=== PATIENT | male | born 1945 | race Caucasian/White ===

== ENCOUNTER 2022-04-19 07:18 | Observation (INO) ==
--- NOTE | 2022-03-12 14:22 | PAT Medication Instructions ---
Medication Instructions Date of Service March 12, 2022 Home Medications Medication Instructions Recorded meloxicam 15 mg tablet (Mobic) 15 mg PO DAILY #30 tabs 12/03/21 meloxicam 15 mg tablet 15 mg PO DAILY #30 tabs 03/07/22 atorvastatin 40 mg tablet 40 mg PO QPM calcium carbonate 500 mg calcium (1,250 mg) chewable tablet (Calcium 500) 500 mg PO BID cyclobenzaprine 10 mg tablet 10 mg PO HS PRN Muscle Spasm furosemide 20 mg tablet 20 mg PO UD meloxicam 15 mg tablet (Mobic) 15 mg PO DAILY metoprolol tartrate 100 mg tablet 100 mg PO BID omeprazole 40 mg capsule,delayed release 40 mg PO QAM tamsulosin 0.4 mg capsule 0.8 mg PO QPM meloxicam 15 mg tablet 15 mg PO DAILY coffee extract 100 mg-phosphatidyl serine 100 mg capsule (Neuriva Original) 100 cap PO QAM meclizine 25 mg tablet 25 mg PO UD PRN Dizziness ASK your surgeon for instructions meloxicam 15 mg tablet (Mobic) 15 mg PO DAILY STOP taking 2 weeks before surgery (or as soon as possible if surgery is within 2 weeks) coffee extract 100 mg-phosphatidyl serine 100 mg capsule (Neuriva Original) 100 cap PO QAM DO NOT take the morning of surgery calcium carbonate 500 mg calcium (1,250 mg) chewable tablet (Calcium 500) 500 mg PO BID furosemide 20 mg tablet 20 mg PO UD Take morning of surgery With a small sip of water, OTHERWISE NOTHING TO EAT OR DRINK AFTER MIDNIGHT: metoprolol tartrate 100 mg tablet 100 mg PO BID omeprazole 40 mg capsule,delayed release 40 mg PO QAM meclizine 25 mg tablet 25 mg PO UD PRN Dizziness (if needed) Take evening before surgery atorvastatin 40 mg tablet 40 mg PO QPM calcium carbonate 500 mg calcium (1,250 mg) chewable tablet (Calcium 500) 500 mg PO BID cyclobenzaprine 10 mg tablet 10 mg PO HS PRN Muscle Spasm (if needed) metoprolol tartrate 100 mg tablet 100 mg PO BID tamsulosin 0.4 mg capsule 0.8 mg PO QPM meclizine 25 mg tablet 25 mg PO UD PRN Dizziness (if needed) Other Notes If you have any questions please call us at [phone] or [phone] or [phone] or [phone]
--- NOTE | 2022-03-20 11:58 | Anesthesiology Consultation ---
Date of Service March 20, 2022 Assessment & Plan (1) Encounter for pre-operative examination: - COVID screening: Per assessment on 03/20: No known COVID-19 positive contacts or current COVID-19 related symptoms. Travel screen negative. Patient vaccinated. At surgeon discretion if preop Covid testing being done. - Outpatient joint assessment: Pt currently scheduled for inpatient pathway. If surgeon requests review for outpatient joint pathway, patient is not recommended candidate for outpatient joint program from anesthesia standpoint. - Preop EKG: ST elevated, consider early repolarization, pericarditis or injury. Otherwise normal ECG. No cardiopulmonary limiting complaints or chest pain at PAT visit from same day. Case reviewed and preop EKG personally reviewed by Dr. Aggarwal- he feels patient okay to proceed with surgery as scheduled pending repeat EKG AM DOS (does not feel further cardiac testing and/or evaluation needed otherwise from his perspective). Chart Review Chart Review: Acceptable Risk for Surgery (pending preop EKG/evaluation AM DOS) and Patient seen in Pre Admission Testing Teaching & Discussion Pre-Anesthesia Teaching/Discussion Notes: Instructed NPO after midnight before surgery,except medications with 15 cc of water. Medication instructions provided according to the PAT guidelines. History Surgery Operation Date: 04/19/22 08:05 Proposed Procedures p Right Total Knee Arthroplasty - Terry Justice, Height/Weight Height: 5 ft 10 in Weight: 116 kg Allergies Allergy/AdvReac Type Severity Reaction Status Date / Time Iodinated Contrast Media Allergy Intermediate Hives Verified 03/12/22 10:00 Medications Home Medications Medication Instructions Recorded Confirmed Last Taken atorvastatin 40 mg tablet 40 mg PO QPM 12/03/21 03/12/22 Unknown calcium carbonate 500 mg calcium 500 mg PO BID 12/03/21 03/12/22 Unknown (1,250 mg) chewable tablet (Calcium 500) cyclobenzaprine 10 mg tablet 10 mg PO HS PRN Muscle Spasm 12/03/21 03/12/22 Unknown furosemide 20 mg tablet 20 mg PO UD 12/03/21 03/12/22 Unknown meloxicam 15 mg tablet (Mobic) 15 mg PO DAILY #30 tabs 12/03/21 03/12/22 Unknown metoprolol tartrate 100 mg tablet 100 mg PO BID 12/03/21 03/12/22 Unknown omeprazole 40 mg capsule,delayed 40 mg PO QAM 12/03/21 03/12/22 Unknown release tamsulosin 0.4 mg capsule 0.8 mg PO QPM 12/03/21 03/12/22 Unknown meloxicam 15 mg tablet 15 mg PO DAILY #30 tabs 03/07/22 03/12/22 Unknown coffee extract 100 mg-phosphatidyl 100 cap PO QAM 03/12/22 03/12/22 Unknown serine 100 mg capsule (Neuriva Original) meclizine 25 mg tablet 25 mg PO UD PRN Dizziness 03/12/22 03/12/22 Unknown Past Medical History Medical History (Updated 03/20/22 @ 15:43 by Shellie Bhatti) Chronic anemia Dementia Per [facility] neuro records "Early stages" GERD (gastroesophageal reflux disease) History of COVID-19 2019- dehydrated, hospitalization x 1 night, no current issues [place] (hard of hearing) Hyperlipidemia Hypertension GISELA (obstructive sleep apnea) No device Osteoarthritis Vertigo Exercise / Class Metabolic Activity III < 4 Walking/Shop/Light housework Past Family History Family History Other No family history of adverse response to anesthesia Past Surgical History Surgical History History of esophagogastroduodenoscopy (EGD) History of left knee replacement History of surgery on arm right Hx of cardiac catheterization ~40 yrs ago > no stents Hx of cholecystectomy Hx of colonoscopy Hx of gastric bypass Past Anesthesia History No Hx of Anesthesia Complications and No Family Hx of Anesthesia Complications History of PONV No Hx of PONV and Hx of Motion Sickness Social History Smoking Status: Former smoker tobacco type: cigarettes Do You Dip or Chew Tobacco: No (Quit years ago) Smoking End Date: Quit 45+ years ago Hx Alcohol Use: No Hx Substance Use: No substance use type: does not use Review of Systems Patient denies chest pain, shortness of breath, fever, chills, cough, wheezing, palpitations. Physical Exam Vital Signs VITALS BP 128/72 P 64 TEMP 98.4 SP02 97%RA RESP 18 PHYSICAL Full cervical extension range of motion. Full TMJ range of motion. TMD 3 finger breaths Mallampati Score 3 Dentition: several missing sides/molars, upper front chipped- recently filed/repaired Lungs: clear throughout to auscultation Cardiac: regular rate and rhythm, no murmurs noted Spine: normal Carotid arteries: negative bruit Extremities: no edema Lab Results Anesthesia Preop Results Results Anesthesia Widget: WBC 6.60 K/ul (4.8-10.8) 03/20/22 Hgb 12.9 g/dl (14.0-18.0) L 03/20/22 Hct 37.5 % (40.1-51.0) L 03/20/22 Plt 125 K/uL (130-400) L 03/20/22 Na 141 mmol/L (136-145) 03/20/22 K 3.8 mmol/L (3.5-5.1) 03/20/22 Cl 106 mmol/L (98-107) 03/20/22 CO2 29 mmol/L (21-32) 03/20/22 BUN 17 mg/dl (6-23) 03/20/22 Creat 0.77 mg/dl (0.6-1.4) 03/20/22 Glucose Level 137 mg/dl (70-99(Fasting)) H 03/20/22 PT 11.5 Seconds (9.0-12.0) 03/20/22 PTT 25.3 Seconds (21.0-31.0) 03/20/22 INR 1.1 (0.9-1.1) 03/20/22 HA1c 6.1 % (4.5-5.6) H 03/20/22 Blood Type A Positive 03/20/22 Antibody Screen NEGATIVE 03/20/22 Testing Electrocardiogram Date: 03/20/22 NSR at [address] elevated, consider early repolarization, pericarditis or injury. Otherwise normal ECG. Chest X-Ray Date: 03/20/22 FINDINGS: No lines and tubes are seen. Calcified aortic knob is seen. The lungs are clear. No evidence of pleural effusion or pneumothorax. IMPRESSION: No acute chest disease. COVID-19 Risk Screen Screening Information COVID-19 Screen Date: 03/20/22 Exposure 21 Days Family/Household +COVID Last 21 Days: No Exposure 10 Days Any COVID Exposure Last 10 Days: No Symptoms Last 10 Days Experienced COVID Sx Last 10 Days: No + COVID 0-90 Days COVID + in Last 0-90 Days: No
[~2022-04-19 07:18] MED LIST: ACETAMINOPHEN 500 MG TAB PO SCH; BUPIVACAINE 0.5 % 5 MG/1 ML PF 10ML VIAL ONE; FAMOTIDINE 20 MG TAB PO SCH; GABAPENTIN 300 MG CAP PO SCH; LR 500ML BOLUS, THEN 15ML/HR IV SCH; LR 60ML/HR IV SCH; ORTHO JOINT MIX INFIL SCH; ROPIVACAINE 0.5% 5 MG/ML 30 ML VIAL ONE; TRANEXAMIC ACID 1,000 MG **IV Intra-op IV SCH; TRANEXAMIC ACID 1,000 MG **IV Pre-op IV SCH; ceFAZolin 2000MG 2,000 MG/15 ML SYR IV SCH; dexAMETHasone 4 MG TAB PO SCH
--- NOTE | 2022-04-19 08:07 | History & Physical Bridge Note ---
Date of Service April 19, 2022 History & Physical Bridge Note I have examined the patient, reviewed the History & Physical and in the interval since the performance of the History & Physical I have noted the following changes of clinical significance: no changes noted
[2022-04-19] MEDS ORDERED: PROPOFOL IV EMULSION 10 MG/ML 20 ML VIAL IV ONE (08:15)
[2022-04-19] MEDS ORDERED: LIDOCAINE 2% MPF LOCAL 5 ML VIAL INFIL ONE (08:15)
[2022-04-19] MEDS ORDERED: MIDAZOLAM HCL 1 MG/ML 2ML VIAL ONE (08:15)
[2022-04-19] MEDS ORDERED: fentaNYL citrate 100 MCG/2 ML VIAL ONE (08:15)
[2022-04-19] MEDS ORDERED: ORTHO JOINT ANESTHETIC ONE (08:37)
[2022-04-19] MEDS ORDERED: ATROPINE SULFATE 0.1 MG/ML 10ML SYR IV PRN (08:49)
[2022-04-19] MEDS ORDERED: fentaNYL citrate 100 MCG/2 ML VIAL IV PRN (08:49)
[2022-04-19] MEDS ORDERED: ePHEDrine sulfate 50 MG/ML AMP IV PRN (08:49)
[2022-04-19] MEDS ORDERED: ONDANSETRON INJ 2 MG/ML 2 ML VIAL IV PRN ×2 (08:49→13:16)
--- NOTE | 2022-04-19 10:38 | Operative Report ---
PG Post Operative Report Pre & Post Diagnosis Operation Date: 04/19/22 09:15 Pre-Op Diagnosis: Degenerative joint disease right knee Post-Op Diagnosis: Degenerative joint disease right knee I identified the patient and participated in the time-out.: Yes Procedure Operation Date: 04/19/22 09:15 Actual Procedures p Right Total Knee Arthroplasty(Right) - Terry Justice DO Surgeon Terry Justice DO [employer] Member Terry Kaminski PA-C Estimated Blood Loss 50 Findings Consistent with Post-Op Diagnosis Specimens Right femoral and tibial bone Description of Procedure Implants used: I used a Sam Persona total knee arthroplasty system with a size 11 PS femur, F tibia, 34 oval patella, and a size 12 CPS polyethylene bearing. All components were cemented in place with Biomet cement. [facility] for the above procedure. He was seen in the preoperative holding area and the operative extremity was identified and signed. He was given a preoperative antibiotic, TXA, a spinal anesthetic and an adductor nerve block. He was taken back to the operating room and laid on the table in supine position. He was given basic sedation. The operative knee was then prepped and draped in sterile fashion. A timeout was done, and the patient and the operative extremity was properly identified. A midline incision was made directly over the patella. Dissection was taken down to the extensor mechanism. A midvastus arthrotomy was used. The medial retinaculum was released and the fat pad was mostly excised. The knee was flexed and the ACL, PCL, and meniscus were removed. A drill was sent down the center of the femoral canal followed by an intramedullary ryan. Off that ryan a distal femoral cutting block was placed. 9 mm was resected off the distal femur at 5 of valgus. A posterior referencing AP sizing guide was then placed on the distal femur. The femur measured to be a size 11. 2 drill holes were placed in 3 of external rotation. A 4-in-1 cutting block was then impacted into place. Anterior, posterior, and chamfer cuts were then made. The proximal tibia was then exposed. An external tibial alignment guide was placed. A tibial cut guide was then anchored in place and the proximal tibia was then resected. The posterior aspect of the knee was then opened up and any additional meniscus fragments and osteophytes were removed. The tibia measured to be a size F. The tibial plate was then placed in the appropriate rotation and the tibia was drilled and punched. Trial components were then placed. I used a size 12 CPS polyethylene insert. The knee was brought through a full range of motion and felt to be stable. The peg holes for the femoral component were then drilled. The patella was then everted and 9 mm was resected off the posterior aspect of the patella. The patella measured to be a size 34 oval. 3 peg holes were then drilled. A trial patella was placed. The knee was once again brought through a full range of motion and felt to be stable. Trial components were then removed. The surrounding soft tissues were injected with 100 cc of an orthopedic pain control cocktail. All components were then cemented into place with Biomet cement. The final polyethylene insert was then snapped into place. Once cement was dry the tourniquet was deflated. Hemostasis was obtained. A dilute betadyne lavage was then done for 3 minutes. The joint was then irrigated with normal saline solution. The midvastus arthrotomy was then closed with #1 Vicryl suture. The skin was closed with 2-0 Vicryl, 3-0V lock suture, and leelee. A soft compressive dressing was placed. He was then transferred to a hospital bed and taken to the postanesthesia care unit in stable condition. He tolerated the procedure well. Terry Kaminski PA-C, was present for the entire procedure. He was critical for patient positioning, prepping, draping, retraction exposure, wound closure and application of sterile dressing. I attest to the content of the Intraoperative Record and any orders documented therein. Any exceptions are noted below.
--- NOTE | 2022-04-19 11:34 | XRay Report ---
RIGHT KNEE 2 VIEWS History: Right total knee arthroplasty. Degenerative arthritis. Postop. FINDINGS: The patient is status post a right total knee arthroplasty. The hardware is intact. No frac ture or dislocation. Skin leelee are in place. IMPRESSION: Right total knee arthroplasty. No evidence for hardware complication. ACT 112: Negative or not required by law. Electronically signed by: Panda Spaulding M.D. 04/19/2022 11:32 AM
--- NOTE | 2022-04-19 13:08 | Anesthesiology Progress Note ---
Date of Service April 19, 2022 Anesthesia Post Procedure Vital Signs Vital Signs: Temp Pulse Resp BP Pulse Ox O2 Del Method O2 Flow Rate 04/19/22 12:40 63 14 101/62 99 Nasal Cannula 2 04/19/22 12:25 68 15 113/64 96 Nasal Cannula 2 04/19/22 12:10 65 13 113/66 94 Nasal Cannula 2 04/19/22 11:55 60 14 119/59 L 98 Nasal Cannula 2 04/19/22 11:40 97.2 F L 61 12 118/59 L 97 Room Air 04/19/22 11:30 58 L 13 94/51 L 94 Room Air 04/19/22 11:20 61 15 100/41 L 98 Room Air 04/19/22 11:10 59 L 13 108/62 100 Oxymask 5 04/19/22 11:02 97.0 F L 64 12 96/47 L 99 Oxymask 5 04/19/22 08:10 98.1 F 63 20 141/95 H 96 Room Air Transfer of Care Handoff Completed per policy Notes Mental Status: alert / awake / arousable and participated in evaluation Patient Amnestic to Procedure: Yes Nausea / Vomiting: adequately controlled Pain: adequately controlled Airway Patency, RR, SpO2: stable & adequate BP & HR: stable & adequate Hydration State: stable & adequate Neuraxial Anesthesia: was administered and sensory block is resolving Anesthetic Complications: no major complications apparent and Pt Satisfied with anesthetic care
[2022-04-19] MEDS ORDERED: MECLIZINE HCL 25 MG TAB PO PRN (13:16)
[2022-04-19] MEDS ORDERED: MAGNESIUM HYDROXIDE SUSP 30 ML UDC PO PRN (13:16)
[2022-04-19] MEDS ORDERED: METOCLOPRAMIDE HCL INJ 5 MG/ML 2 ML VIAL IV PRN (13:16)
[2022-04-19] MEDS ORDERED: bisacodyL 10 MG SUPP PR PRN (13:16)
[2022-04-19] MEDS ORDERED: NALOXONE HCL 0.4 MG/1 ML VIAL/CARP IV PRN (13:16)
[2022-04-19] MEDS ORDERED: HYDROmorphone INJ 0.5 MG/0.5 ML SYR IV PRN (13:16)
[2022-04-19] MEDS ORDERED: CYCLOBENZAPRINE HCL 10 MG TAB PO PRN (13:16)
[2022-04-19] MEDS ORDERED: oxyCODONE HCL IR 5 MG TAB (IMMEDIATE RELEASE) PO PRN (13:16)
[2022-04-19] MEDS: SODIUM CHLORIDE 0.9% 1000ML 1,000 ML IV SCH ×2 (14:27→23:42)
[2022-04-19] MEDS: KETOROLAC TROMETHAMINE 15 MG/ML VIAL IV SCH ×2 (14:28→20:27)
[2022-04-19] MEDS: ACETAMINOPHEN 500 MG TAB PO SCH ×2 (14:28→20:27)
[2022-04-19] MEDS: ceFAZolin 2000MG 2,000 MG/15 ML SYR IV SCH (17:48)
[2022-04-19] MEDS: ASPIRIN 81 MG ECTAB PO SCH (20:25)
[2022-04-19] MEDS: DOCUSATE SODIUM 100 MG CAP PO SCH (20:28)
[2022-04-19] MEDS: METOPROLOL TARTRATE 100 MG TAB PO SCH (20:29)
[2022-04-19] MEDS ORDERED: TAMSULOSIN HCL 0.4 MG CAP PO SCH (21:00)
[2022-04-19] MEDS ORDERED: ATORVASTATIN 40 MG TAB PO SCH (21:00)
[2022-04-19] MEDS ORDERED: SENNA 8.6 MG TAB PO SCH (21:00)
[2022-04-20] MEDS: KETOROLAC TROMETHAMINE 15 MG/ML VIAL IV SCH ×2 (01:48→08:31)
[2022-04-20] MEDS: ceFAZolin 2000MG 2,000 MG/15 ML SYR IV SCH (01:48)
[2022-04-20] MEDS: ACETAMINOPHEN 500 MG TAB PO SCH (05:09)
--- NOTE | 2022-04-20 07:20 | Orthopedic Progress Note ---
Date of Service April 20, 2022 Assessment & Plan (1) Status post right knee replacement: Overall he is doing very well. He is not having much pain in the right knee. He will be seen by physical therapy today for ambulation and range of motion exercises. He is on aspirin for DVT prophylaxis. He can be discharged home later today. He will follow-up with orthopedics in 2 weeks. Rajesh Mireles was seen and examined at bedside this morning. Overall is doing fairly well. He is not having much pain in the right knee. He has been up and ambulating to the bathroom. He has no complaints.. Review of Systems All systems reviewed & are unremarkable except as noted in HPI & below. Physical Exam On physical examination of the right knee, the dressing is clean and dry. His leg is out full extension. He has active dorsiflexion plantarflexion of his right ankle.. Results & Data Results & Data Laboratory Results . Diagnostic Findings Postoperative x-rays of the right knee show the prosthesis to be in anatomic alignment without any evidence of fracture, desiccation, or loosening.. PG Care Time/CCT Total # of Minutes Spent Total Time Spent with Patient: Total time spent is greater than 50% in coordination of care (as documented) at patient's floor/unit and/or counseling patient: Coding Level of Care Code 52833 Post Operative Follow-Up Diagnoses Status post right knee replacement Z96.651
--- NOTE | 2022-04-20 07:21 | Discharge Summary ---
Date of Service April 20, 2022 Principal Diagnosis Same as "Discharge Diagnosis" noted below under Discharge Instructions. Discharge Exam On physical examination of the right knee, the dressing is clean and dry. His leg is out full extension. He has active dorsiflexion plantarflexion of his right ankle.. Discharge Data Procedures Performed Operation Date: 04/19/22 09:15 Actual Procedures p Right Total Knee Arthroplasty(Right) - Terry Justice DO Ordered Studies 04/19/22 05:00 US - OR guided needle placemen Urgent Hospital Course (1) Status post right knee replacement: On April 19, 2022 Chi arrived at [facility] and underwent a right knee replacement without complication. He had a spinal anesthetic. Postoperatively he was started on aspirin for DVT prophylaxis and transferred to the general orthopedic floors. His hospital course was uneventful. On postop day #1, his vital signs were stable and his pain was well controlled. He was able to participate well with physical therapy doing ambulation and range of motion exercises. He was then discharged home. He will follow-up with orthopedics in 2 weeks. PG Care Time/CCT Total # of Minutes Spent Total Time Spent with Patient: Total time spent is greater than 50% in coordination of care (as documented) at patient's floor/unit and/or counseling patient: Discharge Plan Discharge Items Patient Disposition: Home - Home Health Services Reason For Visit: DJD Right Knee Discharge Diagnosis: Right knee replacement Activity: As commented below Non-emergency contact: Surgeon Call non-emergency contact if: your wound has increased redness and your wound has increased drainage Follow-up/Referrals: Andreina Lopez PA-C [Primary Care Provider] - Diet: Regular Addtl Attending Provider Instructions: Activity and Therapy Recommendations: * If you are using [facility] then therapy will be provided at your home until they feel you have accomplished all of your goals. * If you are using [facility] then Physical Therapy will be provided until they feel you are ready to start Outpatient Physical Therapy. * If you are not using home therapy then Outpatient Physical Therapy should start about 3-5 days from your day of surgery. Therapy will last about 6-10 weeks * It is important not to put a pillow under your knee when you are relaxing or sleeping. It is just as important to make sure you are getting your knee perfectly straight as it is to regain your knee bend. * You were shown a series of exercises in the hospital. Do these exercises three times each day including the exercises you were shown in physical therapy. * Get up and walk several times each day. For the first four weeks, try not to stand or walk for more than one hour at a time. If you do stand or walk for more than one hour, you will not hurt anything, but your leg will likely swell. * As you feel comfortable, you may change from the walker or crutches to a cane and then to independent walking. Medications: * Narcotic You will likely be sent home from the hospital with a prescription for the narcotic pain medication that worked best throughout your stay. * Aspirin Most patients will be required to take Aspirin 81mg twice a day for 6 weeks after surgery. This is obtained [id number] and a prescription is not necessary. * Other medications may be prescribed for specific circumstances. If you have any questions, please call the office at . * Resume previous home medications unless otherwise instructed TEDs/Elastic Stockings: The white elastic stockings help limit swelling and prevent blood clots from forming in your legs.~ The more you wear them, the more they work. Wear them for six weeks. Dressing Care: The dressing can be changed after physical therapy on postop day #1. Daily dry dressing changes for a few days, especially if the incision is still draining some. If the incision is not draining then you may leave the leelee open to air. If there is a little bit of drainage or if the leelee are getting stuck on your clothing then cover the incision with a dry dressing. The leelee will be removed at your 2 week follow-up appointment. Showering: You may shower 5 days from the day of surgery as long as the incision is no longer draining. You may shower with the leelee exposed. Let soapy water run over the leelee and pat them dry. Do not scrub or soak the incision. Things To Watch For: * Drainage from the incision site that occurs more than one week after your surgery. * Increased redness at the incision site. * Fever above 102 degrees Fahrenheit. * Unusual chest pain or shortness of breath. * Call [facility] at with any of the above pro blems Follow-Up Visit: Follow-up with Dr. Justice's PA (Terry Kaminski) 2-3 weeks after your day of surgery. He will remove your leelee and answer any questions. If you have any additional questions or concerns, Dr Justice is usually in the office at the same time and will be available An appointment was probably scheduled when you signed-up for surgery in the office. If you have any questions call Office Instructions: More detailed instructions as well as Frequently Asked Questions were provided in a folder by our office when you signed-up for surgery. Please review these instructions when you get home. If you have any further questions or concerns, please feel free to call the office at [phone] Pending Studies at Discharge: No Stand-Alone Forms: [facility], Smoking Cessation Medications and DC Order Prescriptions: New aspirin 81 mg Tablet,Delayed Release (Dr/Ec) 81 mg PO BID 42 Days Qty: 84 0RF oxycodone-acetaminophen 5-325 mg tablet 1 tab PO Q6H PRN (Reason: pain) Qty: 30 0RF Continued meloxicam 15 mg tablet 15 mg PO DAILY Qty: 30 2RF omeprazole 40 mg capsule,delayed release(DR/EC) 40 mg PO QAM furosemide 20 mg tablet 20 mg PO UD Rx Instructions: takes every other day metoprolol tartrate 100 mg tablet 100 mg PO BID atorvastatin 40 mg tablet 40 mg PO QPM cyclobenzaprine 10 mg tablet 10 mg PO HS PRN (Reason: Muscle Spasm) Rx Instructions: takes every other day calcium carbonate [Calcium 500] 500 mg calcium (1,250 mg) tablet,chewable 500 mg PO BID tamsulosin 0.4 mg capsule 0.8 mg PO QPM meclizine 25 mg tablet 25 mg PO UD PRN (Reason: Dizziness) Neuriva Original 100-100 mg Capsule 100 cap PO QAM multivitamin Tablet 1 tab PO QAM Admission Data Admit Date/Time: 04/19/22 11:07 Attending Provider: Terry Justice Admit Provider: Terry Justice Primary Care Provider: Andreina Lopez
[2022-04-20] MEDS ORDERED: dexAMETHasone 4 MG TAB PO SCH (08:00)
[2022-04-20] MEDS: ASPIRIN 81 MG ECTAB PO SCH (08:27)
[2022-04-20] MEDS: METOPROLOL TARTRATE 100 MG TAB PO SCH (08:27)
[2022-04-20] MEDS: DOCUSATE SODIUM 100 MG CAP PO SCH (08:28)
[2022-04-20] MEDS ORDERED: FUROSEMIDE 20 MG TAB PO SCH (09:00)
[2022-04-20] MEDS ORDERED: MULTIVITAMIN TAB PO SCH (09:00)
[2022-04-20] MEDS ORDERED: PANTOprazole 40 MG TAB PO SCH (09:00)
== END 2022-04-20 11:08 | disposition home health service (06) ==
LOC: ASU 07:18 → PACUINP 07:18 → 3E 13:47